=== PATIENT | female | born 1950 | race Caucasian/White ===

== ENCOUNTER 2016-11-11 23:59 | Emergency (ER) | payer MEDICARE ==
[~2016-11-11 23:59] MED LIST: ADVAIR 250-501 EACH IH; ADVAIR 2501 DISK W/D PO; ADVAIR 500-501 EACH IH; ADVAIR 500-501 EACH INH; ADVAIR 5001 DISK W/1 IH; ALB/IPRATROPIUM/1 E1 INH; ALBUTEROL17 GM INH; ALBUTEROL2.5 MG/0.5 INH; ASPIRIN325 M1 PO; BACTRIM DS TABL1 TAB PO; BAYER ASPIRIN325 M1 PO; CELEXA20 MG PO; CITALOPRAM HBR10 MG DOB; CLEOCIN PO; CLOTRIMAZOLE15 GM; COMBIVENT U/D3 M1 INH; CRESTOR PO; CRESTOR10 MG DOB; DIFLUCAN100 MG PO; DOXYCYCLINE PO; FERRO-TIME325 MG PO; GLUCOPHAGE500 MG PO; INCRUSE ELLI62.5 MCG INH; LASIX20 MG PO; LEVAQUIN PO; LEVAQUIN750 M1 PO; LISINOPRIL10 MG PO; MAGNESIUM250 M1 PO; MEDROL PO; METFORMIN HCL500 M1 PO; METOPROLOL SUCC25 MG PO; METOPROLOL TAR25 MG PO; MOTRIN600 M1 PO; MULTI VITAMIN1 EACH PO; NITROGLYGERIN0.4 MG SL; NYSTATIN5 ML PO; OXYGEN 2LPM; PAIN RELIEF650 MG PO; PREDNISONE PO; ROBITUSSIN A-C-S1 ML PO; ROBITUSSIN S/F118 ML PO; SPIRIVA18 MCG INH; SPIRIVA18 MCG PO; TRIAMTERENE-HCT1 TA8 PO; VIBRAMYCIN100 M1 PO; VITAMIN B PO; ZITHROMAX PO; ZOCOR PO; [UNRECOGNIZED DRUG - REMARK]
== END 2016-11-12 00:05 | disposition left against medical advice (07) ==
LOC: CED 23:59
DX: Z53.21 Procedure and treatment not carried out due to patient leaving prior to being seen by health care provider (principal)